=== PATIENT | male | born 1940 | race Caucasian/White ===

== ENCOUNTER 2019-09-13 06:58 | Emergency (ER) | payer OTHER ==
[~2019-09-13] VITALS: Ht 170.2 cm; Wt 90.7 kg
[2019-09-13 06:58] VITALS: BP 137/77
[2019-09-13] MEDS ORDERED: PROPECIA1 MG PO (07:09)
[2019-09-13] MEDS ORDERED: KLOR-CON M2020 MEQ PO (07:09)
[2019-09-13] MEDS ORDERED: TRAMADOL 50 MG50 MG PO (07:10)
[2019-09-13] MEDS ORDERED: TAPAZOLE10 MG PO (07:10)
[2019-09-13] MEDS ORDERED: FUROSEMIDE 40 M40 M1 PO (07:10)
[2019-09-13] MEDS ORDERED: FLONASE SENSIM5.9 ML NASAL (07:11)
[2019-09-13] MEDS ORDERED: ALPRAZOLAM XR3 MG PO (07:11)
[2019-09-13] MEDS ORDERED: ASA81BEC PO (07:12)
[2019-09-13] MEDS ORDERED: FISH OIL 1,0001 EAC9 PO (07:12)
[2019-09-13] MEDS ORDERED: VITAMIN E1000 UNIT PO (07:12)
[2019-09-13] MEDS ORDERED: ALTOPREV40 M1 PO (07:12)
== END 2019-09-13 08:33 | disposition home or self-care (01) ==
LOC: ER 06:58
DX: M25.432 Effusion, left wrist (principal); Z79.82 Long term (current) use of aspirin; Z79.899 Other long term (current) drug therapy